=== PATIENT | male | born 1970 | race Caucasian/White ===

== ENCOUNTER 2017-07-27 15:39 | Emergency (ER) | payer BC, MEDICARE, MEDICAID ==
[~2017-07-27] VITALS: Wt 90.7 kg
[~2017-07-27 15:39] MED LIST: ANTIVERT25 MG PO; ATARAX25 MG PO; BACTRIM DS 8001 TA1 PO; CLARITIN10 MG PO; GABAPENTIN300 MG PO; KEFLEX500 MG PO; LIDEX0.05% T; MULTI VITAMINS1 TAB PO; NKHM; PREDNICOT20 MG PO; TRIMOX500 MG PO; VIBRAMYCIN100 MG PO; ZITHROMAX Z PA250 MG PO; ZOLOFT50 MG PO
[2017-07-27 15:48] VITALS: BP 142/79
[2017-07-27] MEDS ORDERED: NORCO 5-325 TA1 EACH PO (16:47)
[2017-07-27] MEDS ORDERED: NAPROSYN500 MG PO (16:47)
[2017-07-27] MEDS ORDERED: CYCLOBENZAPRINE5 M3 PO (16:47)
== END 2017-07-27 16:53 | disposition home or self-care (01) ==
LOC: ED 15:39
DX: S39.012A Strain of muscle, fascia and tendon of lower back, initial encounter (principal); F17.200 Nicotine dependence, unspecified, uncomplicated; Z79.899 Other long term (current) drug therapy; X58.XXXA Exposure to other specified factors, initial encounter; Y93.89 Activity, other specified; Y92.89 Other specified places as the place of occurrence of the external cause; Y99.8 Other external cause status

== ENCOUNTER 2017-11-22 12:48 | Emergency (ER) | payer BC, MEDICARE, MEDICAID ==
[~2017-11-22] VITALS: Ht 182.8 cm; Wt 93.9 kg
[~2017-11-22 12:48] MED LIST changes: +CYCLOBENZAPRINE5 M3 PO; +NAPROSYN500 MG PO; +NORCO 5-325 TA1 EACH PO
[2017-11-22 12:49] VITALS: BP 125/79
[2017-11-22] MEDS ORDERED: ZYRTEC10 MG PO (13:34)
[2017-11-22] MEDS ORDERED: FLONASE ALLERG9.9 ML NAS (13:34)
[2017-11-22] MEDS ORDERED: AMOXICILLI125 MG/5 M PO (13:34)
== END 2017-11-22 13:40 | disposition home or self-care (01) ==
LOC: ED 12:48
DX: J01.90 Acute sinusitis, unspecified (principal); F17.200 Nicotine dependence, unspecified, uncomplicated; Z79.899 Other long term (current) drug therapy

== ENCOUNTER 2019-02-14 08:09 | Emergency (ER) | payer BC, MEDICARE, MEDICAID ==
[~2019-02-14] VITALS: Ht 182.8 cm; Wt 98.4 kg
[2019-02-14 08:09] VITALS: BP 127/65
[~2019-02-14 08:09] MED LIST changes: +AMOXICILLI125 MG/5 M PO; +FLONASE ALLERG9.9 ML NAS; +ZYRTEC10 MG PO
[2019-02-14] MEDS ORDERED: PREDNISONE20 M1 PO (08:49)
[2019-02-14] MEDS ORDERED: KENALOG 0.5% CR15 GM T (08:49)
== END 2019-02-14 08:55 | disposition home or self-care (01) ==
LOC: ED 08:09
DX: L30.9 Dermatitis, unspecified (principal); F17.200 Nicotine dependence, unspecified, uncomplicated; Z79.899 Other long term (current) drug therapy; Z79.2 Long term (current) use of antibiotics; Z86.73 Personal history of transient ischemic attack (TIA), and cerebral infarction without residual deficits

== ENCOUNTER 2019-07-27 14:40 | Emergency (ER) | payer BC, MEDICARE, MEDICAID ==
[~2019-07-27] VITALS: Ht 182.8 cm; Wt 99.3 kg
[~2019-07-27 14:40] MED LIST changes: +KENALOG 0.5% CR15 GM T; +PREDNISONE20 M1 PO
[2019-07-27 14:50] VITALS: BP 125/62
[2019-07-27] MEDS ORDERED: ZITHROMAX250 MG PO (16:29)
[2019-07-27] MEDS ORDERED: PROAIR HFA8.5 GM INH (16:30)
== END 2019-07-27 17:39 | disposition home or self-care (01) ==
LOC: ED 14:40
DX: J06.9 Acute upper respiratory infection, unspecified (principal); J01.90 Acute sinusitis, unspecified; F17.200 Nicotine dependence, unspecified, uncomplicated; Z86.73 Personal history of transient ischemic attack (TIA), and cerebral infarction without residual deficits

== ENCOUNTER 2019-12-02 11:19 | Emergency (ER) | payer BC ==
[~2019-12-02] VITALS: Ht 182.8 cm; Wt 90.7 kg
[~2019-12-02 11:19] MED LIST changes: +PROAIR HFA8.5 GM INH; +ZITHROMAX250 MG PO
[2019-12-02 11:25] VITALS: BP 133/78
[2019-12-02] MEDS ORDERED: PREDNISONE10 MG PO ×2 (11:39→11:42)
[2019-12-02] MEDS ORDERED: KENALOG 0.1%80 GM T ×2 (11:39→11:42)
== END 2019-12-02 11:37 | disposition home or self-care (01) ==
LOC: ED 11:19
DX: L25.9 Unspecified contact dermatitis, unspecified cause (principal)

== ENCOUNTER 2022-01-15 12:12 | Emergency (ER) | payer BC, MEDICARE ==
[~2022-01-15] VITALS: Wt 127.0 kg
[~2022-01-15 12:12] MED LIST changes: +KENALOG 0.1%80 GM T; +PREDNISONE10 MG PO
[2022-01-15] MEDS ORDERED: KENALOG 0.1%80 GM T (12:36)
[2022-01-15] MEDS ORDERED: PREDNISONE20 M1 PO (12:36)
== END 2022-01-15 12:45 | disposition home or self-care (01) ==
LOC: ED 12:12
DX: L25.9 Unspecified contact dermatitis, unspecified cause (principal); Z90.89 Acquired absence of other organs